=== PATIENT | female | born 1995 | race Two or more races ===

== ENCOUNTER 2017-08-14 18:04 | Emergency (ER) | payer MEDICAID, OTHER, SELFPAY ==
[~2017-08-14] VITALS: Ht 152.4 cm; Wt 61.7 kg
[2017-08-14 18:07] VITALS: BP 112/74
[2017-08-14] MEDS ORDERED: KETOROLAC 30 MG/1 ML IM ONE (19:00)
[2017-08-14] MEDS ORDERED: METHOCARBAMOL 750 MG TABLET PO ONE (19:00)
[2017-08-14] MEDS ORDERED: KETOROLAC 30 MG/1 ML ONE (19:07)
[2017-08-14] MEDS ORDERED: METHOCARBAMOL 750 MG TABLET ONE (19:07)
== END 2017-08-14 19:50 | disposition home or self-care (01) ==
LOC: ED 19:25
DX: S16.1XXA Strain of muscle, fascia and tendon at neck level, initial encounter (principal); M94.0 Chondrocostal junction syndrome [Tietze]; X58.XXXA Exposure to other specified factors, initial encounter; M62.838 Other muscle spasm; Y93.89 Activity, other specified; Y99.8 Other external cause status; Y92.89 Other specified places as the place of occurrence of the external cause
CPT/HCPCS: 71020; 96372; 99284; J1885

== ENCOUNTER 2018-03-21 23:59 | Emergency (ER) | payer SELFPAY ==
[2018-03-22] MEDS ORDERED: ALBUTEROL/IPRATROPIUM 2.5MG/0.5MG, 3 ML NPPB PRN (00:30)
[2018-03-22] MEDS ORDERED: ALBUTEROL SULFATE 2.5 MG/3 ML ONE (00:32)
[2018-03-22 01:35] VITALS: BP 112/78
== END 2018-03-22 01:49 | disposition home or self-care (01) ==
LOC: ED 23:59
DX: R06.00 Dyspnea, unspecified (principal); J98.01 Acute bronchospasm
CPT/HCPCS: 71046; 93005; 94640; 99284; J7512; J7620

== ENCOUNTER 2018-07-04 18:50 | Emergency (ER) | payer SELFPAY ==
[~2018-07-04] VITALS: Ht 152.4 cm; Wt 69.7 kg
[2018-07-04 19:52] LABS: MICROSCOPIC INDICATED
[2018-07-04 19:55] LABS: CULTURE INDICATED? NO
[2018-07-04] MEDS ORDERED: PROCHLORPERAZINE 5 MG/ML, 2ML IVPush ONE (20:00)
[2018-07-04] MEDS ORDERED: DIPHENHYDRAMINE 25 MG CAPSULE PO ONE (20:00)
[2018-07-04] MEDS ORDERED: MORPHINE SULFATE 4 MG/ML, 1ML IVPush ONE (20:00)
[2018-07-04 20:02] LABS: HCG UR SG 1.015 (1.003-1.030)
[2018-07-04] MEDS ORDERED: PROCHLORPERAZINE 5 MG/ML, 2ML ONE (20:04)
[2018-07-04] MEDS ORDERED: MORPHINE SULFATE 4 MG/ML, 1ML ONE (20:05)
[2018-07-04] MEDS ORDERED: DIPHENHYDRAMINE 25 MG CAPSULE ONE (20:05)
[2018-07-04 20:25] LABS: ALANINE AMINOTRANSFERASE 33 U/L (12-78); ALBUMIN 3.8 g/dL (3.4-5.0); ANION GAP 10 mmol/L (5-15); CHLORIDE 107 mmol/L (98-107); CREATININE 0.58 mg/dL (0.55-1.02)
[2018-07-04 20:27] LABS: ALKALINE PHOSPHATASE 90 U/L (45-117); BILIRUBIN,TOTAL 0.2 mg/dL (0.2-1.0); TOTAL PROTEIN 7.8 g/dL (6.4-8.2)
[2018-07-04 20:37] LABS: BASOPHILS # (AUTO) 0.06 x10^3/uL (0-0.1); BASOPHILS % (AUTO) 1 % (0-1); EOSINOPHILS # (AUTO) 0.04 x10^3/uL (0-0.4); EOSINOPHILS % (AUTO) 0 % (1-7); LYMPHOCYTES # (AUTO) 2.28 x10^3/uL (1-3.4); LYMPHOCYTES % (AUTO) 20 % (22-44); MD NO; MEAN CORPUSCULAR HEMOGLOBIN 31.9 pg (27.0-34.8); MEAN CORPUSCULAR HGB CONC 34.8 g/dL (32.4-35.8); MEAN CORPUSCULAR VOLUME 91.7 fL (80-100); MEAN PLATELET VOLUME 9.6 fL (7.4-10.4); MONOCYTES # (AUTO) 0.65 x10^3/uL (0.2-0.8); MONOCYTES % (AUTO) 6 % (2-9); NEUTROPHILS # (AUTO) 8.31 x10^3/uL (1.8-6.8); NEUTROPHILS % (AUTO) 73 % (42-75); PLATELET COUNT 326 x10^3/uL (130-400); RED BLOOD COUNT 4.35 x10^6/uL (3.82-5.3); RED CELL DISTRIBUTION WIDTH 12.6 % (9.6-15.2)
[2018-07-04 21:28] VITALS: BP 102/64
== END 2018-07-04 21:30 | disposition home or self-care (01) ==
LOC: ED 21:23
DX: K80.20 Calculus of gallbladder without cholecystitis without obstruction (principal)
CPT/HCPCS: 36415; 76700; 80053; 81001; 81025; 83690; 85025; 93005; 96374; 96375; 99285; J0780; Q0163

== ENCOUNTER 2020-06-21 20:43 | Outpatient (CLI) | payer MEDICAID ==
[~2020-06-21] VITALS: Ht 152.4 cm; Wt 67.0 kg
[2020-06-21 20:59] VITALS: BP 104/60
[2020-06-21 22:08] LABS: MICROSCOPIC NOT IND
== END 2020-06-21 22:35 | disposition home or self-care (01) ==
LOC: LDOP 20:43
PROVIDERS: ATTEND Obstetrics & Gynecology
DX: O26.892 Other specified pregnancy related conditions, second trimester (principal); R10.9 Unspecified abdominal pain; Z3A.27 27 weeks gestation of pregnancy; Z20.828 Contact with and (suspected) exposure to other viral communicable diseases
CPT/HCPCS: 59025; 81003; 87086; 87635

== ENCOUNTER 2020-11-23 19:03 | Emergency (ER) | payer MEDICAID ==
[~2020-11-23] VITALS: Ht 152.4 cm; Wt 72.5 kg
[2020-11-23 19:38] LABS: MEAN CORPUSCULAR HEMOGLOBIN 26.7 pg (27.0-34.8); MEAN CORPUSCULAR HGB CONC 32.6 g/dL (32.4-35.8); MEAN PLATELET VOLUME 8.6 fL (7.4-10.4); PLATELET COUNT 358 x10^3/uL (130-400); RED BLOOD COUNT 4.35 x10^6/uL (3.82-5.3); RED CELL DISTRIBUTION WIDTH 21.3 % (9.6-15.2)
[2020-11-23 19:46] LABS: ANION GAP 6 mmol/L (5-15); CALCIUM 9.1 mg/dL (8.5-10.1); CHLORIDE 110 mmol/L (98-107)
[2020-11-23 19:52] LABS: CREATININE 0.66 mg/dL (0.55-1.02)
[2020-11-23 20:07] LABS: MD YES
[2020-11-23 20:09] LABS: EOS% (MANUAL) 1 % (1-7); LYMPH#(MANUAL) 4.42 x10^3/uL (1-3.4); LYMPHS% (MANUAL) 46 % (22-44); MONOS#(MANUAL) 0.48 x10^3/uL (0.3-2.7); MONOS% (MANUAL) 5 % (2-9); SEG#(MANUAL) 4.61 x10^3/uL (1.8-6.8); SEGS% (MANUAL) 48 % (42-75)
[2020-11-23 20:10] LABS: <PLATELET ESTIMATE> ADEQUATE; <PLT MORPHOLOGY> NORMAL PLT MORPH; ANISOCYTOSIS 1+; MICROCYTOSIS 1+
[2020-11-23 20:24] LABS: MICROSCOPIC AUTO
--- NOTE | 2020-11-23 21:46 | NUR ---
US AT BEDSIDE
[2020-11-23] MEDS ORDERED: CEFTRIAXONE 1,000 MG ONE (22:49)
[2020-11-23] MEDS ORDERED: CEFTRIAXONE 1,000 MG IM ONE (23:00)
[2020-11-23 23:05] VITALS: BP 101/56
--- NOTE | 2020-11-23 23:18 | NUR ---
Patient given discharge instructions and they have confirmed that they understand the instructions. Patient ambulatory with steady gait.
== END 2020-11-23 23:19 | disposition home or self-care (01) ==
LOC: ED 19:33
DX: N30.01 Acute cystitis with hematuria (principal); R10.9 Unspecified abdominal pain; R30.0 Dysuria; M54.5 Low back pain
CPT/HCPCS: 36415; 76770; 80048; 81001; 82040; 84703; 85025; 87077; 87086; 87186; 96372; 99284; J0696